=== PATIENT | male | born 1950 | race Caucasian/White ===

== ENCOUNTER 2019-11-20 05:36 | Day surgery (SDC) | payer MEDICARE, BC ==
[~2019-11-20] VITALS: Ht 182.9 cm; Wt 115.4 kg
[~2019-11-20 05:36] MED LIST: OMEGA 31000 MG PO; PRILOSEC 20MG20 MG PO; ZYLOPRIM 100MG100 MG PO; ZYRTEC 10MG10 MG PO
[2019-11-20] MEDS ORDERED: ZYLOPRIM 300MG300 MG PO (06:14)
[2019-11-20] MEDS ORDERED: NEURONTIN300 MG/CAP PO ×2 (06:15)
[2019-11-20] MEDS ORDERED: SINGULAIR 110 MG/TAB PO (06:15)
[2019-11-20] MEDS ORDERED: PRILOSEC 20MG20 MG PO (06:15)
[2019-11-20] MEDS ORDERED: ASTELIN NASAL S34 ML NS (06:16)
[2019-11-20] MEDS ORDERED: ANTI-DIARRHEAL2 MG PO (06:16)
[2019-11-20] MEDS ORDERED: MULTI VITAMINS1 TAB PO (06:16)
[2019-11-20] MEDS ORDERED: TYLENOL 500MG500 MG PO (06:17)
[2019-11-20] MEDS ORDERED: ATROVENT NASAL15 ML NS (06:17)
[2019-11-20 06:18] VITALS: BP 146/81; PULSE 64; TEMP 97.3
[2019-11-20] MEDS ORDERED: NAPROSYN 2250 MG/TAB PO (06:18)
[2019-11-20 08:20] VITALS: BP 126/85; PULSE 57; TEMP 97.6
--- NOTE | 2019-11-20 08:20 | NUR ---
Patient [place] [facility] [place], accompanied by [employer] Marlena. He is sitting up in bed, chatting, denies complaints. He has a Faye catheter to dependent drainage leg bag. The urine is clear, light red in color. No clots in faye bag. His is at the bedside. Monitoring is applied for post-op vitals - VSS on room air. Denies pain or nausea. Offered and receives coffee and a muffin to eat.
[2019-11-20 08:30] VITALS: BP 132/84; PULSE 69
--- NOTE | 2019-11-20 08:30 | NUR ---
Patient is resting in his room comfortably. Tolerating PO well. He eats all his muffin and drinks all his coffee. Denies pain or nausea.
[2019-11-20 08:45] VITALS: BP 137/82; PULSE 67
--- NOTE | 2019-11-20 09:00 | NUR ---
VSS on room air. He has met discharge criteria. Faye catheter care is taught. They deny questions and verbalize understanding. Discharge instructions are reviewed. PIV is removed with catheter intact and hemostasis achieved. He empties his faye leg bag independently and changes to his clothing.
--- NOTE | 2019-11-20 09:20 | NUR ---
Patient is escorted to the exit via wheelchair by staff. He is discharged to home with ride in private vehicle at 0920.
[2019-11-20 09:34] VITALS: BP 126/85; PULSE 66; TEMP 97.4
== END 2019-11-20 09:20 | disposition home or self-care (01) ==
LOC: SDCO 05:36
DX: N30.41 Irradiation cystitis with hematuria (principal); M10.9 Gout, unspecified; K21.9 Gastro-esophageal reflux disease without esophagitis; K44.9 Diaphragmatic hernia without obstruction or gangrene; G47.33 Obstructive sleep apnea (adult) (pediatric); G62.9 Polyneuropathy, unspecified; R73.9 Hyperglycemia, unspecified; Z79.899 Other long term (current) drug therapy; Z88.1 Allergy status to other antibiotic agents; Z88.8 Allergy status to other drugs, medicaments and biological substances; Z85.46 Personal history of malignant neoplasm of prostate
CPT/HCPCS: J0690; J2405; J2704; J3010; J7120